=== PATIENT | male | born 1980 | race Caucasian/White ===

== ENCOUNTER 2021-04-06 18:40 | Emergency (ER) | payer OTHER ==
[~2021-04-06] VITALS: Ht 170.2 cm; Wt 74.8 kg
[~2021-04-06 18:40] MED LIST: ACEBUTCAFT PO; BUPR75 PO; CEPH500 PO; CETI10 PO; CIPR500 PO; CLIN150 PO; HYDACE5 PO; IBUP600 PO; IBUP800 PO; LORA1 PO; METPRE4DP PO; NASAL SPRAY; PROM25 PO; SULTRIDS PO; TRAM50 PO
== END 2021-04-06 19:46 | disposition home or self-care (01) ==
LOC: ER 18:40
DX: J06.9 Acute upper respiratory infection, unspecified (principal); Z20.822 Contact with and (suspected) exposure to COVID-19; Z88.0 Allergy status to penicillin; F17.200 Nicotine dependence, unspecified, uncomplicated
CPT/HCPCS: 99282; A9270

== ENCOUNTER → 2022-06-29 | Outpatient (CLI) | payer OTHER | END | disposition home or self-care (01) | LOC: LAB SHORT 15:08 → LAB 15:08 | DX: R30.0 Dysuria (principal) | CPT/HCPCS: 87077; 87086; 87186 ==